=== PATIENT | male | born 1935 | race Caucasian/White ===

== ENCOUNTER 2017-05-03 10:21 | Inpatient (IN) | payer OTHER ==
[~2017-05-03] VITALS: Ht 182.9 cm; Wt 77.1 kg
--- NOTE | ~2017-05-03 | CNG ---
[facility] [place] [address] CYTO-NONGYN REPORT PROCEDURE Name: KUSHAL PICHARDO Room #: 442-P ADM IN M.R.#: [id number] Admission: 05/03/17 Date of : 37 Discharge: Report #: [id number] Path Case #: [id number] CYTOPATHOLOGY REPORT COLLECTION DATE: 05/04/2017 RECEIVED DATE: 05/04/2017 SUBMITTING PHYS: Dr. Natanael Aguayo OTHER PHYS: Dr. Carmencita Francois CLINICAL HISTORY: Pleural effusion; See also [id number] SPECIMEN(S) RECEIVED: A.Pleural fluid * * * * * * * * * * * * FINAL DIAGNOSIS: A. 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 (Please see comment) Comment: Numerous tumor cells morphologically consistent with small cell carcinoma are present. The tumor cells are positive for synaptophysin and Cam 5.2 and negative for chromogranin. The tumor cells in this case are morphologically similar to those seen in this patient's liver biopsy ([id number]) which has also been reviewed. PATHOLOGIST: Alexandrea Dudley M.D. REPORT ELECTRONICALLY SIGNED BY: Alexandrea Dudley M.D. DATE/TIME: 05/08/2017 09:34 * * * * * * * * * * * * GROSS PATHOLOGY: A. Pleural fluid: The specimen is submitted unfixed, labeled "Kushal Pichardo". Received by the Cytology Department is 17 mL of cloudy orange-lacy pink fluid. One ThinPrep slide and a formalin fixed cell block were prepared. (mm 05.04.2017) PROJECT MANAGEMENT INSTRUCTOR(S): CAROLINA Ochoa([facility]) INITIAL CPT CODE(S): A; 20315, 13724, 12815, 53980, 76460 Professional services performed by [facility] at [facility] [address] [facility] , [place] [address] Technical services performed by [facility] at [address] [place] [address], [address], [place] [address]. [facility] [address] [place] [address] CYTO-NONGYN REPORT PROCEDURE Name: KUSHAL PICHARDO Room #: 442-P ADM IN M.R.#: [id number] Admission: 05/03/17 Date of : 37 Discharge: Report #: [id number] Path Case #: [id number] [facility] [address] [place] [address], [address] [place] [address] PHONE: [phone] DIRECTOR: Andrae Nguyen M.D. * * * END OF REPORT * * *
--- NOTE | ~2017-05-03 | S ---
[facility] [place] [address] SURGICAL PATH RPT PROCEDURE Name: KUSHAL PICHARDO Room #: 442-P ADM IN M.R.#: [id number] Admission: 05/03/17 Date of : 37 Discharge: Report #: [id number] Path Case #: [id number] PATHOLOGY REPORT COLLECTION DATE: 05/04/2017 RECEIVED DATE: 05/04/2017 SUBMITTING PHYS: Dr. Carmencita Francois OTHER PHYS: Dr. Natanael Aguayo SPECIMEN(S) RECEIVED: A.Liver mass bx * * * * * * * * * * * * FINAL DIAGNOSIS: Liver, needle core biopsy: - SMALL CELL CARCINOMA. COMMENT: Examination of the "liver" biopsy tissue shows a small blue cell neoplasm with crush artifact as well as abundant necrosis. Immunohistochemical stains are performed based on the provided history. 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 Co-review Dr. Mac Dudley. Findings of this case are discussed with Dr. Jair Sanford at approximately 10:00 am on 05/05/2017. (IUV:pit; 05/05/2017) PATHOLOGIST: Leeanne Martinez M.D. REPORT ELECTRONICALLY SIGNED BY: Leeanne Martinez M.D. DATE/TIME: 05/05/2017 17:27 * * * * * * * * * * * * GROSS PATHOLOGY: Received in formalin labeled "Kushal Pichardo, liver BX," are 9 distinct needle cores of leal soft tissue ranging from 0.1 to 0.9 cm in length, which are submitted entirely in cassette A1. (TSD; 05/04/2017) [facility] [place] [address] SURGICAL PATH RPT PROCEDURE Name: ELIASKUSHAL Wheeler Room #: 442-P ADM IN M.R.#: [id number] Admission: 05/03/17 Date of : 37 Discharge: Report #: [id number] Path Case #: [id number] CLINICAL HISTORY: Liver mass BX, patient has lung masses also INITIAL CPT CODE(S): A; 00192, 33364, 83457, 03765, 87887, 30516 Professional services performed by [facility] [address], [place] [address] Technical services performed by [facility] at [address] [place] [address], [address] [address]. [facility] [address] [place] [address] PHONE: [phone] DIRECTOR: Andrae Nguyen M.D. * * * END OF REPORT * * *
--- NOTE | ~2017-05-03 | HC ---
[facility] [place] [address] CONSULTATION Name: KUSHAL GRIFFIN Summer Room #: 442- ADM IN M.R.#: [id number] Admission: 05/03/17 Attend Phys: Natanael Aguayo MD Discharge: Date of : 37 Report #: [id number] THIS REPORT FOR: //name// CC: Michael Shelton MD [facility] physician/PCP Fausto Arnold PRACTITIONER REQUESTING CONSULT: Alana Wolfe REASON FOR CONSULTATION: Probable lung cancer with left hilar mass, mediastinal adenopathy and liver abnormalities. HISTORY OF PRESENT ILLNESS: The patient is a very pleasant 81-year-old gentleman who grew up down near [place], [place] and lives here by himself [place] a farm. He has no parents, no siblings, no children. He does have 2 cats. 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 He has been moving some bran and noted some left chest discomfort that is persistent. He has also had some swallowing abnormalities. No real fevers, no chills. Does have a cough. Had head cold back near [facility], but that had cleared. Liquids go down okay. No weight changes. No change in bowel habits. No blood in his urine or stool. No dysuria. No arm or leg swelling. He is not aware of any masses. PAST MEDICAL HISTORY: Notable for really no surgery. He also had some type of neck trouble several years ago. FAMILY HISTORY: Reports no cancers. SOCIAL HISTORY: Nonsmoker and nondrinker. MEDICATIONS: None prior to admission to the hospital in [place]. Note that his current medications now currently include azithromycin 500 mg daily, ceftriaxone 1 g q. 24, pantoprazole 40 daily, guaifenesin 1200 b.i.d., ipratropium/albuterol respiratory therapy q. 4, MiraLax 17 g daily, nitroglycerin 0.4 sublingual p.r.n. and Zofran 4 mg IV p.r.n. LABORATORY RESULTS: Here include fairly normal BMP, though note down at [place] he had transaminases in the 60-80 range. White count here is 9, hemoglobin 12.8, MCV 92.9 and platelets 237. Slight increase in neutrophils. The patient did have PA and lateral chest x-ray done here. Rest of his imaging was done at [place]. This shows opacification in inferior half of left thorax secondary to a moderate left pleural effusion, left basilar pneumonia or atelectasis. PHYSICAL EXAMINATION: VITAL SIGNS: Height is 6 feet, which is 182.9 cm; weight is 170 pounds 6 ounces, which is 77.1 kg; blood pressure is 144/74; O2 sat 97%; respirations 20; [facility] [address] [place] [address] CONSULTATION Name: KUSHAL GRIFFIN Summer Room #: 442-P [facility] IN [facility].#: [id number] Admission: 05/03/17 Attend Phys: Natanael Aguayo MD Discharge: Date of : 37 Report #: [id number] pulse 81 and temperature 97.5. MOOD: The patient is alert and pleasant. NEUROLOGIC: His face is symmetrical, moving all extremities. LYMPHATICS: No enlarged lymph nodes in the supraclavicular, cervical, axillary or inguinal region. ABDOMEN: Fairly scaphoid. No masses. EXTREMITIES: Without clubbing or cyanosis. LUNGS: The patient does have decreased breath sounds in the left lower half. Does have some central rhonchi. DISCUSSION: Discussed with patient that I am seeing him because of concern about possible lung cancer. Told that we will follow along and find it out if this is indeed true. Then we can discuss treatment options with him. ASSESSMENT AND PLAN: 1. Left hilar mass with pleural effusion and possible liver metastasis per outside scans. We will await thoracentesis and cytology. If malignancy is found, we will need to complete staging. May consider dedicated CT abdomen and pelvis and bone scan or PET scan. We would also consider MRI head. Chemotherapy would be the option, but we will need to see whether this patient wishes to take it as he has no family support, though I am not sure about friends he has from [place]. 2. Pneumonia. Continue Zithromax and ceftriaxone. 3. Lung difficulties. Continues with inhalation therapy and also guaifenesin. We will follow with you. <ELECTRONICALLY SIGNED> By: Michael Sanofrd MD 05/05/17 0724 0837 1100 Michael Sanford MD /nt
--- NOTE | ~2017-05-03 | P ---
[facility] [place] [address] PROCEDURE REPORT Name: KUSHAL GRIFFIN Room #: 442-P [facility] IN M.R.#: [id number] Admission: 05/03/17 Attend Phys: Natanael Aguayo MD Discharge: Date of : 37 Report #: [id number] THIS REPORT FOR: //name// CC: Michael Francois MD [facility] physician/PCP Fausto Starks MD DATE OF SERVICE: 05/06/2017 PROCEDURE PERFORMED: Upper endoscopy with biopsies. HISTORY OF PRESENT ILLNESS: The patient is an 81-year-old male who was transferred from [facility] with left chest discomfort and persistent cough. CT scan of the abdomen and pelvis as well as chest showed a large left hilar mass, left lower lobe atelectasis, mediastinal lymphadenopathy and a large left pleural effusion. He also has innumerable low density liver lesions consistent with metastatic disease. He has been having intermittent dysphagia, upper GI was performed on 05/05/2017, which showed a 4-cm long mid esophageal stricture, likely secondary to extrinsic compression of the esophagus by subcarinal adenopathy. He also had a thoracentesis on May 04. Plan is for EGD for further evaluation. DESCRIPTION OF PROCEDURE: The risks and benefits of the procedure were explained to the patient, those risks including but not limited to bleeding, perforation, the risk of sedation. He understood these risks and gave informed consent. Sedation was given using propofol per anesthesia. Next using a standard Fujinon upper endoscope, the scope was placed in the patient's mouth and advanced under direct vision through the esophagus, stomach and into the second portion of the duodenum. The larynx was normal in appearance. The proximal esophagus was normal. At approximately 30 cm in the mid esophagus, there was what appears to be extrinsic compression and narrowing of the esophagus. At this point, there were 2 ulcerations as well. No evidence of active bleeding. These ulcerations may be secondary to a pill-induced type of esophagitis, however, biopsies were obtained to rule out the possibility of CMV and herpes. The scope did pass through this area with some mild resistance. The distal esophagus was normal. The GE junction was normal. Overall, the gastric mucosa was normal. The pylorus was normal and patent. The duodenal bulb, first and second portion were all normal. Because of the esophageal ulcers, dilation was not performed and I suspect dilation would not be helpful due to their appearance of extrinsic compression. At this point, the scope was then withdrawn and the procedure terminated. The patient tolerated the procedure well. IMPRESSION: Narrowing of mid esophagus at 30 cm, suspect this is from external [facility] [address] [place] [address] PROCEDURE REPORT Name: KUSHAL GRIFFIN Room #: 442-P [facility] IN M.R.#: [id number] Admission: 05/03/17 Attend Phys: Natanael Aguayo MD Discharge: Date of : 37 Report #: [id number] compression from lymphadenopathy. There were 2 ulcerations noted in this area. I suspect this may be secondary to a pill-induced type of esophagitis. Biopsies, however, were obtained to rule out viral potential etiologies as well. No obvious mass lesions were seen in this area. Again, dilation was not performed as this appears to be extrinsic and there were active ulcerations. RECOMMENDATIONS: 1. Await biopsy results. 2. We will add liquid Carafate and continue PPI therapy. Thank you for allowing me to participate in his care. <ELECTRONICALLY SIGNED> By: Dixon Rogel MD 05/08/17 0814 0858 1111 Dixon Rogel MD /nt
--- NOTE | ~2017-05-03 | S ---
[facility] [place] [address] SURGICAL PATH RPT PROCEDURE Name: KUSHAL GRIFFIN Room #: 442-P DIS IN M.R.#: [id number] Admission: 05/03/17 Date of : 37 Discharge: 05/09/17 Report #: [id number] Path Case #: [id number] PATHOLOGY REPORT COLLECTION DATE: 05/06/2017 RECEIVED DATE: 05/08/2017 SUBMITTING PHYS: Dr. Dixon Rogel OTHER PHYS: Dr. Natanael Aguayo ADDENDUM REPORT (Order Date: 05/10/2017 13:31) ADDENDUM COMMENT: Addendum is issued subsequent to reviewing well-controlled stains. (Block A1) Special stain GMS - No definite fungal elements identified. *CMV immunohistochemical stain - No definite CMV identified. *HSV1 immunohistochemical stain - No definite herpes identified. The originally rendered diagnosis remains unchanged. (IUV; 05/10/2017) *This test was developed and its performance characteristics determined by [facility]. It has not been cleared or approved by the U.S. Food and Drug Administration. The FDA has determined that such clearance or approval is not necessary. This test is used for clinical purposes. It should not be regarded as investigational or for research. This laboratory is certified under the Clinical Laboratory Improvement Amendments of 1988 (CLIA) as qualified to perform high complexity clinical laboratory testing. Professional services performed by [facility] at [facility] [address], [place] [address] Technical services performed by [facility] at [address] [place] [address], [address] [place] [address]. ELECTRONICALLY SIGNED BY: Leeanne Martinez M.D. DATE/TIME:05/10/2017 15:35 SPECIMEN(S) RECEIVED: A.Bx of esophageal lesions at 30 cm * * * * * * * * * * * * FINAL DIAGNOSIS: Squamous mucosa, esophageal erosion 30 cm, endoscopic biopsy: [facility] [address] [place] [address] SURGICAL PATH RPT PROCEDURE Name: KUSHAL GRIFFIN Summer Room #: 442-P [facility] IN .R.#: [id number] Admission: 05/03/17 Date of : 37 Discharge: 05/09/17 Report #: [id number] Path Case #: [id number] - Moderate acute esophagitis. - No active ulceration present in the biopsy tissue. - Negative for parasitic organisms, or of viral inclusions on routine histology (please see comment). - Negative for malignancy. COMMENT: Special stain for fungal elements and immunohistochemical stains for *CMV as well as *HSV 1 are ordered on block A1. The results of these will be reported in an addendum to follow. (IUV:mgr; 05/09/2017) *This test was developed and its performance characteristics determined by [facility]. It has not been cleared or approved by the U.S. Food and Drug Administration. The FDA has determined that such clearance or approval is not necessary. This test is used for clinical purposes. It should not be regarded as investigational or for research. This laboratory is certified under the Clinical Laboratory Improvement Amendments of 1988 (CLIA) as qualified to perform high complexity clinical laboratory testing. PATHOLOGIST: Leeanne Martinez M.D. REPORT ELECTRONICALLY SIGNED BY: Leeanne Martinez M.D. DATE/TIME: 05/09/2017 13:53 * * * * * * * * * * * * GROSS PATHOLOGY: Received in formalin labeled "Kushal Szymasnkin, biopsy of esophageal erosion 30 cm," and additionally labeled on the requisition as, "esophageal lesions," are six segments of leal soft tissue measuring 0.7 x 0.5 x 0.1 cm in aggregate dimensions and ranging from 0.2 to 0.4 cm in maximum dimension. The specimen is submitted entirely in cassette A1. (DAC; 05/08/2017) CLINICAL HISTORY: Esophageal erosions, R/O CMV and herpes INITIAL CPT CODE(S): A; 62060, 41697, 81270, 55194 Professional services performed by [facility] at [facility] [address] [place] [address] Technical services performed by [facility] at [address] [place] [address], [address] [address]. [facility] [address] [place] [address] SURGICAL PATH RPT PROCEDURE Name: KUSHAL GRIFFIN Summer Room #: 442-P DIS IN M.R.#: [id number] Admission: 05/03/17 Date of : 37 Discharge: 05/09/17 Report #: [id number] Path Case #: [id number] [facility] [address] [address] PHONE: [phone] DIRECTOR: Andrae Nguyen M.D. * * * END OF REPORT * * *
[2017-05-03 11:45] VITALS: BP 140/81
[2017-05-03 16:00] VITALS: BP 142/91
[2017-05-03 18:19] LABS: APTT 26.3 Seconds (24.5-32.8); PROTIME 10.7 Seconds (9.3-11.4)
[2017-05-03 19:41] VITALS: BP 118/64
[2017-05-04] VITALS (9 sets, daily range): BP systolic 122–153; BP diastolic 60–92
[2017-05-04 06:46] LABS: BASOPHILS 0.1 % (0.0-2.0); HEMATOCRIT 37.8 % (42.0-52.0); HEMOGLOBIN 12.8 gm/dL (14.0-18.0); MCH 31.5 pg (26.0-34.0); MCHC 33.9 g/dL (28.0-37.0); MCV 92.9 fL (80.0-100.0); MONOCYTES 7.6 % (1.0-8.0); PLATELET COUNT 237 thou/uL (150-400); POLYS 78.3 % (36.0-66.0); RBC 4.07 mil/uL (4.50-6.00); RDW 14.5 % (10.5-14.5)
[2017-05-04 06:57] LABS: CALCIUM 8.6 mg/dL (8.5-10.1); POTASSIUM 4.8 mmol/L (3.5-5.1)
[2017-05-04 11:28] LABS: CLARITY HAZY; COLOR STRAW; SOURCE THORACENTESIS; TOTAL VOLUME 60 mL
[2017-05-04 14:11] LABS: BF NUCLEATED CELLS 242; BF RBC 6020
[2017-05-05 03:36] VITALS: BP 87/55
[2017-05-05 03:52] LABS: ABSOLUTE NEUTROPHILS 7.2 thou/uL (1.4-8.2); BASOPHILS 0.2 % (0.0-2.0); EOSINOPHILS 1.1 % (0.0-3.0); HEMATOCRIT 36.5 % (42.0-52.0); HEMOGLOBIN 12.5 gm/dL (14.0-18.0); LYMPHOCYTES 11.2 % (24.0-44.0); MCH 31.8 pg (26.0-34.0); MCHC 34.2 g/dL (28.0-37.0); MONOCYTES 7.1 % (1.0-8.0); PLATELET COUNT 207 thou/uL (150-400); POLYS 80.4 % (36.0-66.0); RBC 3.92 mil/uL (4.50-6.00); RDW 14.4 % (10.5-14.5); WBC 8.9 thou/uL (4.0-11.0)
[2017-05-05 04:03] LABS: CALCIUM 8.4 mg/dL (8.5-10.1); CREATININE 0.9 mg/dL (0.7-1.3); POTASSIUM 4.1 mmol/L (3.5-5.1)
[2017-05-05 08:00] VITALS: BP 114/74
[2017-05-05 11:11] LABS: BODY FLUID ALBUMIN 1.9 g/dL (()); BODY FLUID AMYLASE 21 U/L (()); BODY FLUID GLUCOSE 92 mg/dL (()); BODY FLUID LDH 289 IU/L (()); BODY FLUID PROTEIN 3.2 g/dL (())
[2017-05-05 15:57] VITALS: BP 113/70
[2017-05-05 19:13] VITALS: BP 103/64
[2017-05-06 03:38] LABS: ABSOLUTE NEUTROPHILS 6.6 thou/uL (1.4-8.2); BASOPHILS 0.1 % (0.0-2.0); EOSINOPHILS 2.5 % (0.0-3.0); HEMATOCRIT 37.2 % (42.0-52.0); HEMOGLOBIN 12.7 gm/dL (14.0-18.0); LYMPHOCYTES 12.7 % (24.0-44.0); MCH 31.7 pg (26.0-34.0); MCV 93.2 fL (80.0-100.0); MONOCYTES 8.4 % (1.0-8.0); PLATELET COUNT 222 thou/uL (150-400); POLYS 76.3 % (36.0-66.0); RBC 3.99 mil/uL (4.50-6.00); RDW 14.3 % (10.5-14.5); WBC 8.6 thou/uL (4.0-11.0)
[2017-05-06 03:46] LABS: CALCIUM 8.3 mg/dL (8.5-10.1); POTASSIUM 4.2 mmol/L (3.5-5.1)
[2017-05-06 04:54] VITALS: BP 112/60
[2017-05-06 06:45] LABS: LARGE PLATELETS FEW
[2017-05-06 07:35] VITALS: BP 117/68
[2017-05-06 11:11] LABS: SOURCE THORACENTESIS
[2017-05-06 12:47] LABS: BF NEUTROPHILS 1
[2017-05-06 16:11] VITALS: BP 120/65
[2017-05-06 19:04] VITALS: BP 122/72
[2017-05-07 04:32] VITALS: BP 106/57
[2017-05-07 04:51] LABS: ABSOLUTE NEUTROPHILS 5.5 thou/uL (1.4-8.2); BASOPHILS 0.2 % (0.0-2.0); EOSINOPHILS 2.8 % (0.0-3.0); HEMATOCRIT 35.9 % (42.0-52.0); LYMPHOCYTES 14.3 % (24.0-44.0); MCH 31.2 pg (26.0-34.0); MCHC 33.4 g/dL (28.0-37.0); MCV 93.2 fL (80.0-100.0); MONOCYTES 9.2 % (1.0-8.0); PLATELET COUNT 213 thou/uL (150-400); POLYS 73.5 % (36.0-66.0); RBC 3.85 mil/uL (4.50-6.00); RDW 14.7 % (10.5-14.5); WBC 7.5 thou/uL (4.0-11.0)
[2017-05-07 05:07] LABS: CALCIUM 8.3 mg/dL (8.5-10.1); POTASSIUM 4.3 mmol/L (3.5-5.1)
[2017-05-07 08:25] VITALS: BP 119/63
[2017-05-07 16:12] VITALS: BP 105/63
[2017-05-07 19:43] VITALS: BP 100/52
[2017-05-08 04:04] VITALS: BP 110/72; BP 94/62
[2017-05-08 04:39] LABS: ABSOLUTE NEUTROPHILS 5.2 thou/uL (1.4-8.2); BASOPHILS 0.2 % (0.0-2.0); EOSINOPHILS 2.3 % (0.0-3.0); HEMATOCRIT 35.9 % (42.0-52.0); LYMPHOCYTES 14.7 % (24.0-44.0); MCH 31.1 pg (26.0-34.0); MCHC 33.4 g/dL (28.0-37.0); MONOCYTES 10.8 % (1.0-8.0); PLATELET COUNT 222 thou/uL (150-400); RBC 3.86 mil/uL (4.50-6.00); RDW 14.3 % (10.5-14.5); WBC 7.2 thou/uL (4.0-11.0)
[2017-05-08 04:51] LABS: CALCIUM 8.3 mg/dL (8.5-10.1); POTASSIUM 4.5 mmol/L (3.5-5.1)
[2017-05-08 07:25] VITALS: BP 104/66
[2017-05-08 15:40] VITALS: BP 118/78
[2017-05-08 16:16] VITALS: BP 104/66
[2017-05-08 22:23] VITALS: BP 104/49; BP 122/70
[2017-05-09 04:36] VITALS: BP 121/66
[2017-05-09 05:44] LABS: ABSOLUTE NEUTROPHILS 5.3 thou/uL (1.4-8.2); BASOPHILS 0.3 % (0.0-2.0); EOSINOPHILS 2.3 % (0.0-3.0); HEMATOCRIT 37.7 % (42.0-52.0); HEMOGLOBIN 12.6 gm/dL (14.0-18.0); LYMPHOCYTES 14.2 % (24.0-44.0); MCH 30.9 pg (26.0-34.0); MCHC 33.4 g/dL (28.0-37.0); MCV 92.7 fL (80.0-100.0); MONOCYTES 9.5 % (1.0-8.0); PLATELET COUNT 217 thou/uL (150-400); POLYS 73.7 % (36.0-66.0); RBC 4.07 mil/uL (4.50-6.00); RDW 14.5 % (10.5-14.5); WBC 7.2 thou/uL (4.0-11.0)
[2017-05-09 05:58] LABS: CALCIUM 8.7 mg/dL (8.5-10.1); CREATININE 0.8 mg/dL (0.7-1.3); POTASSIUM 4.1 mmol/L (3.5-5.1)
[2017-05-09 08:56] VITALS: BP 121/75
[2017-05-09 10:57] VITALS: BP 104/66
[2017-05-10 10:14] LABS: BF MACROPHAGE 93
== END 2017-05-09 14:45 | disposition home or self-care (01) | DRG 180 ==
LOC: 4S 10:21 → ENTRNSPT 05-09 14:21 → EDTRNSPTSTS 05-09 14:24 → 4S 05-09 14:45
PROVIDERS: Family Medicine; Internal Medicine Pulmonary Disease; Nurse Practitioner
PROC: 0W9B3ZX Drainage of Left Pleural Cavity, Percutaneous Approach, Diagnostic (ICD-10-PCS; principal; 2017-05-04)
PROC: 0FB23ZX Excision of Left Lobe Liver, Percutaneous Approach, Diagnostic (ICD-10-PCS; principal; 2017-05-04)
PROC: 0DB58ZX Excision of Esophagus, Via Natural or Artificial Opening Endoscopic, Diagnostic (ICD-10-PCS; 2017-05-06)
DX: C34.92 Malignant neoplasm of unspecified part of left bronchus or lung (principal); J18.9 Pneumonia, unspecified organism; E43 Unspecified severe protein-calorie malnutrition; K22.10 Ulcer of esophagus without bleeding; C78.7 Secondary malignant neoplasm of liver and intrahepatic bile duct; R59.1 Generalized enlarged lymph nodes; K22.2 Esophageal obstruction; Z68.23 Body mass index [BMI] 23.0-23.9, adult; Z79.899 Other long term (current) drug therapy
CPT/HCPCS: 10102; 62110; 62900; 70005

== ENCOUNTER 2017-05-18 02:03 | Inpatient (IN) | payer OTHER ==
[2017-05-18] VITALS (8 sets, daily range): BP systolic 114–156; BP diastolic 60–78
[~2017-05-18] VITALS: Ht 182.9 cm; Wt 70.8 kg
--- NOTE | ~2017-05-18 | HC ---
[facility] [place] [address] CONSULTATION Name: KUSHAL GRIFFIN Summer Room #: 412-P ADM IN M.R.#: [id number] Admission: 05/18/17 Attend Phys: Jonathan Lovell MD Discharge: Date of : 37 Report #: [id number] THIS REPORT FOR: //name// CC: Michael Francois MD [facility] Yossi Smith MD REASON FOR CONSULTATION: Extensive stage small cell lung cancer. HISTORY OF PRESENT ILLNESS: I had first met the patient during his last admit when he was admitted for a left hilar mass and biopsy came back showing small cell carcinoma. At that time, plans have been made, since the patient is without children or much family support, to see the oncologist in [place] at [facility]. This was accomplished last week, and the patient was planning to begin chemotherapy today on Monday, but unfortunately was admitted last Monday for shortness of breath and placement of PleurX catheter and also for pain management. I talked with the patient today. He is willing to begin chemotherapy. I think this is somewhat urgent. I am afraid if we will wait till either late this week or next week, the patient will progress so far that he would not be able to benefit. I still have some concerns about his ability to benefit at this point. The patient denies recent headache, fevers or chills. Does still have a cough. Does have a dry throat. Does have a little bit of constipation, but he has not eaten very much. He has not had any bleeding. No new arm or leg swelling. Has had the shortness of breath, maybe slightly better after the PleurX catheter. He has also recently had a post-obstructive pneumonia. Other than that, his past medical history is pretty benign. FAMILY HISTORY: No cancer. SOCIAL HISTORY: He is a nonsmoker and nondrinker. 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 Has friend support down there. Note that the patient did have a PleurX catheter placed on the left side on 05/18/2017. MEDICATIONS: At this time in the hospital currently include IV fluids, fentanyl p.r.n., Lovenox 40 mg daily, lidocaine to affected areas around the catheter as needed, meclizine 12.5 t.i.d., guaifenesin p.r.n., benzocaine/menthol lozenges q. 2 p.r.n., oxycodone 10 mg q. 4 p.r.n., pantoprazole 40 b.i.d., sucralfate 1 g before meals and at bedtime, ipratropium and albuterol 3 mL q. 6 respiratory therapy and Zofran p.r.n. LABORATORY RESULTS: Show a BUN of 13 and creatinine of 1. Liver function with [address] [address] CONSULTATION Name: KUSHAL GRIFFIN Room #: [facility].#: [id number] Admission: 05/18/17 Attend Phys: Jonathan Lovell MD Discharge: Date of : 37 Report #: [id number] AST 139. Total bili 1.1. Alk phos 700 and ALT 149. Albumin 2.5. White blood count 11.4, hemoglobin 11.6 and platelets of 243. Differential: Slight left shift, but not acute. IMAGING: At this time showed a CAT of abdomen and pelvis showing the liver metastasis. ASSESSMENT AND PLAN: 1. Extensive stage small cell lung cancer. We will make plans for emergently beginning carboplatin, AUC of 5, times 1 dose and GENER[employer]ER-16 or etoposide 80 mg/m2 daily for 3 days with antiemetics as needed. We will also begin allopurinol in case the patient might have tumor lysis. I have already talked with the pharmacist twice now, also the floor nurse and left the message with the infusion center. We will also try to contact [facility], so they are aware that we will be administering the chemo up here. 2. Pain. We will try to increase patient's available pain meds. 3. Shortness of breath and pleural effusion. He has PleurX catheter and hopefully this will dry up with use of chemotherapy. We will follow closely with you. <ELECTRONICALLY SIGNED> By: Michael Sanford MD 05/24/17 1303 0757 0926 Michael Sanford MD /nt
--- NOTE | ~2017-05-18 | HC ---
[facility] [place] [address] CONSULTATION Name: KUSHAL GRIFFIN Room #: 412-P [facility] .R.#: [id number] Admission: 05/18/17 Attend Phys: Jonathan Lovell MD Discharge: 05/27/17 Date of : 37 Report #: [id number] THIS REPORT FOR: //name// CC: Yossi Velasco MD DATE OF SERVICE: 05/24/2017 REQUESTING PHYSICIAN: Dr. Velasco. 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 HISTORY OF PRESENT ILLNESS: The patient is an 81-year-old male who presented to [facility] on 05/18. The patient unfortunately had a large pleural effusion and required PleurX drain placement and has had subsequently significant drainage from this drain. He initially had 3 liters. He additionally had significant pain, which he reports right now is abdominal type and required pain management. The patient had previously been seen by Dr. Sanford and was going to follow up in [facility] near [place], [place] for followup oncology; however, had never made it to this followup. The patient subsequently has had worsening of his overall condition with metastasis to the liver based on recent scans. The patient reports that at this time, his worst symptom is his abdominal pain, which appears to be radiating from the right to the left just below his ribs. He denies current nausea. Does have a scopolamine patch as well as multiple other medications including Zofran, Compazine and Phenergan in place for p.r.n. use. Additionally, the patient has reports of some minimal constipation as well. PAST MEDICAL HISTORY: Prior to this diagnosis, the patient did not have a significant medical history. He has known dysphagia now and hypoxic respiratory failure. Cervical neck fracture previously. FAMILY HISTORY: Noncontributory. SOCIAL HISTORY: The patient was never a smoker per his previous report. He is not able to answer at this current point in time. MEDICATIONS: Previously on no significant home medication. Currently on a 12 mcg fentanyl patch, oxycodone IR 10 mg p.r.n. and also Compazine, Phenergan and scopolamine patch as previously discussed. ALLERGIES: NO KNOWN DRUG ALLERGIES. SOCIAL HISTORY: His durable power of menu planner is apparently a cousin. He [facility] [address] [place] [address] CONSULTATION Name: KUSHAL GRIFFIN Summer Room #: 412-P [facility] IN ..#: [id number] Admission: 05/18/17 Attend Phys: Jonathan Lovell MD Discharge: 05/27/17 Date of : 37 Report #: [id number] states his name is Mac. He states that he would like to make his own medical decisions at this time. He appears to currently have capacity for those decisions. REVIEW OF SYSTEMS: GENERAL: He has had recent weight loss and significant decrease in appetite. RESPIRATORY: Does report dyspnea, but not significant at this time and is not bothersome to him. CARDIOVASCULAR: Denies chest pain. ABDOMEN: Does report nausea, but it has been well controlled with his current regimen. Some constipation as well. EXTREMITIES: Reports diffuse weakness. PHYSICAL EXAMINATION: VITAL SIGNS: These include vitals 36.8 temperature, pulse 102, respirations 20, blood pressure 151/88 and 91% on nasal cannula. GENERAL: The patient appears to be alert and oriented x 2. HEENT: Extraocular muscles appear to be intact. No scleral icterus. He does open his eyes to command. He is able to respond to questions today. CARDIOVASCULAR: Regular rate and rhythm without murmur. LUNGS: He does have diminished lung sounds, but no apparent upper lobe rales. ABDOMEN: He has diffuse tenderness to palpation especially prominent upper quadrant bilaterally. LABORATORY DATA: Include hemoglobin 11.7, white blood cell count 15.9. Creatinine 1.0 and sodium 133. ASSESSMENT AND PLAN: 1. Metastatic small cell lung cancer. Management per Oncology at this time. I did discuss extensively today. I spent approximately 45 minutes in discussion with the patient with regards to advance care directives and this was of a voluntary nature including the possibility of hospice outpatient. The patient will consider this. He had initially made statements such as "I am ready to give it up per report," although he is very difficult to obtain information from at this time, appears to have acute delirium at this current point, unknown how much information he is exactly retaining although he was able to express to me the consequences of not seeking treatment. The patient is understanding that this is not likely curative treatment that he is receiving at this point in time, but more a palliative type treatment. The patient is amenable to possibility of hospice in the future, but he will consider further whether he wants it at this time. I did discuss code status as well and the patient again is to consider this. Unfortunately, I will not be present in the next 4 days as I will be out of town, but I am glad to follow up on Monday with regards to this. 2. Delirium. I do feel like this is affecting his current decision making status. I had scopolamine removed, although I do not want to induce nausea with [facility] [address] [place] [address] CONSULTATION Name: KUSHAL GRIFFIN Room #: 412-P [facility] [place] [facility]#: [id number] Admission: 05/18/17 Attend Phys: Jonathan Lovell MD Discharge: 05/27/17 Date of : 37 Report #: [id number] the patient, I do think that it may be contributing to worsening of his altered mental status and this may allow for more clear mentation for patient for us to obtain his definitive wishes. Again, I will continue to follow up, but it will have to be on Monday. I will not be able to see the patient until such time. Please feel free to contact me at any time. I will be happy to discuss decision making with the patient in the meantime. Thank you very much for the consultation. <ELECTRONICALLY SIGNED> By: Tiago Prather DO 07/07/17 [id number] Tiago Prather DO /nt
[2017-05-18 02:47] LABS: ABSOLUTE NEUTROPHILS 6.4 thou/uL (1.4-8.2); BASOPHILS 0.7 % (0.0-2.0); EOSINOPHILS 0.9 % (0.0-3.0); HEMATOCRIT 37.7 % (42.0-52.0); HEMOGLOBIN 12.7 gm/dL (14.0-18.0); LYMPHOCYTES 11.3 % (24.0-44.0); MCH 31.3 pg (26.0-34.0); MCHC 33.7 g/dL (28.0-37.0); MCV 92.9 fL (80.0-100.0); MONOCYTES 7.7 % (1.0-8.0); PLATELET COUNT 274 thou/uL (150-400); POLYS 79.4 % (36.0-66.0); RBC 4.06 mil/uL (4.50-6.00); RDW 14.7 % (10.5-14.5)
[2017-05-18 02:53] LABS: CALCIUM 9.2 mg/dL (8.5-10.1); POTASSIUM 4.1 mmol/L (3.5-5.1)
[2017-05-18 02:58] LABS: ALBUMIN 2.5 g/dL (3.4-5.0); TOTAL BILIRUBIN 1.1 mg/dL (<0.1-1.0); TOTAL PROTEIN 6.6 g/dL (6.4-8.2)
[2017-05-19] VITALS: BP 118/72
[2017-05-19 04:00] VITALS: BP 130/72
[2017-05-19 08:15] VITALS: BP 109/72
[2017-05-19 10:42] LABS: ABSOLUTE NEUTROPHILS 8.4 thou/uL (1.4-8.2); BASOPHILS 0.3 % (0.0-2.0); EOSINOPHILS 0.3 % (0.0-3.0); HEMATOCRIT 39.1 % (42.0-52.0); LYMPHOCYTES 5.7 % (24.0-44.0); MCHC 33.1 g/dL (28.0-37.0); MCV 93.6 fL (80.0-100.0); PLATELET COUNT 253 thou/uL (150-400); POLYS 85.7 % (36.0-66.0); RBC 4.18 mil/uL (4.50-6.00); RDW 15.4 % (10.5-14.5); WBC 9.9 thou/uL (4.0-11.0)
[2017-05-19 10:50] LABS: CALCIUM 8.9 mg/dL (8.5-10.1); POTASSIUM 4.4 mmol/L (3.5-5.1)
[2017-05-19 16:36] VITALS: BP 121/74
[2017-05-19 19:00] VITALS: BP 117/62
[2017-05-20] VITALS: BP 101/71
[2017-05-20 04:00] VITALS: BP 117/73
[2017-05-20 08:00] VITALS: BP 113/72
[2017-05-20 17:16] VITALS: BP 122/49; BP 140/49
[2017-05-20 20:00] VITALS: BP 126/49
[2017-05-21 04:17] VITALS: BP 109/68
[2017-05-21 16:38] VITALS: BP 106/57
[2017-05-21 20:08] VITALS: BP 101/69
[2017-05-22 03:25] VITALS: BP 125/68
[2017-05-22 06:21] LABS: ABSOLUTE NEUTROPHILS 9.5 thou/uL (1.4-8.2); BASOPHILS 0.3 % (0.0-2.0); EOSINOPHILS 0.7 % (0.0-3.0); HEMATOCRIT 34.7 % (42.0-52.0); HEMOGLOBIN 11.6 gm/dL (14.0-18.0); LYMPHOCYTES 5.3 % (24.0-44.0); MCH 31.2 pg (26.0-34.0); MCHC 33.4 g/dL (28.0-37.0); MCV 93.3 fL (80.0-100.0); MONOCYTES 11.1 % (1.0-8.0); PLATELET COUNT 243 thou/uL (150-400); POLYS 82.6 % (36.0-66.0); RBC 3.72 mil/uL (4.50-6.00); RDW 15.1 % (10.5-14.5); WBC 11.4 thou/uL (4.0-11.0)
[2017-05-22 06:29] LABS: CALCIUM 8.1 mg/dL (8.5-10.1); MAGNESIUM 1.8 mg/dL (1.8-2.4); POTASSIUM 4.6 mmol/L (3.5-5.1)
[2017-05-22 09:13] VITALS: BP 121/61
[2017-05-22 18:10] VITALS: BP 96/55
[2017-05-22 21:31] VITALS: BP 112/79
[2017-05-23 04:12] LABS: ABSOLUTE NEUTROPHILS 10.5 thou/uL (1.4-8.2); BASOPHILS 0.2 % (0.0-2.0); HEMATOCRIT 35.1 % (42.0-52.0); HEMOGLOBIN 11.7 gm/dL (14.0-18.0); LYMPHOCYTES 1.9 % (24.0-44.0); MCH 30.8 pg (26.0-34.0); MCHC 33.3 g/dL (28.0-37.0); MCV 92.6 fL (80.0-100.0); MONOCYTES 5.3 % (1.0-8.0); PLATELET COUNT 267 thou/uL (150-400); POLYS 92.6 % (36.0-66.0); RBC 3.79 mil/uL (4.50-6.00); RDW 15.1 % (10.5-14.5); WBC 11.4 thou/uL (4.0-11.0)
[2017-05-23 04:21] LABS: ALBUMIN 1.6 g/dL (3.4-5.0); CALCIUM 8.1 mg/dL (8.5-10.1); MAGNESIUM 1.9 mg/dL (1.8-2.4); POTASSIUM 4.2 mmol/L (3.5-5.1); TOTAL PROTEIN 5.4 g/dL (6.4-8.2)
[2017-05-23 05:25] VITALS: BP 115/73
[2017-05-23 16:26] VITALS: BP 112/67
[2017-05-23 20:00] VITALS: BP 137/79
[2017-05-24 02:41] VITALS: BP 125/74
[2017-05-24 05:05] LABS: HEMATOCRIT 35.3 % (42.0-52.0); HEMOGLOBIN 11.7 gm/dL (14.0-18.0); MCH 30.8 pg (26.0-34.0); MCHC 33.2 g/dL (28.0-37.0); MCV 92.9 fL (80.0-100.0); RBC 3.8 mil/uL (4.50-6.00); RDW 14.8 % (10.5-14.5); WBC 15.9 thou/uL (4.0-11.0)
[2017-05-24 05:08] LABS: CALCIUM 8.1 mg/dL (8.5-10.1); POTASSIUM 4.6 mmol/L (3.5-5.1)
[2017-05-24 08:33] VITALS: BP 120/70
[2017-05-24 11:41] VITALS: BP 151/88
[2017-05-24 15:55] VITALS: BP 129/66
[2017-05-24 20:00] VITALS: BP 115/58
[2017-05-25 04:21] VITALS: BP 118/76
[2017-05-25 05:50] LABS: ABSOLUTE NEUTROPHILS 15.4 thou/uL (1.4-8.2); HEMATOCRIT 32.2 % (42.0-52.0); HEMOGLOBIN 10.7 gm/dL (14.0-18.0); LYMPHOCYTES 1.3 % (24.0-44.0); MCH 30.8 pg (26.0-34.0); MCHC 33.3 g/dL (28.0-37.0); MCV 92.4 fL (80.0-100.0); MONOCYTES 0.8 % (1.0-8.0); PLATELET COUNT 264 thou/uL (150-400); POLYS 97.9 % (36.0-66.0); RBC 3.49 mil/uL (4.50-6.00); WBC 15.7 thou/uL (4.0-11.0)
[2017-05-25 06:07] LABS: ALBUMIN 1.4 g/dL (3.4-5.0); CALCIUM 7.8 mg/dL (8.5-10.1); MAGNESIUM 2.2 mg/dL (1.8-2.4); POTASSIUM 4.6 mmol/L (3.5-5.1); TOTAL BILIRUBIN 0.7 mg/dL (<0.1-1.0); TOTAL PROTEIN 4.7 g/dL (6.4-8.2)
[2017-05-25 08:57] VITALS: BP 119/60
[2017-05-25 20:00] VITALS: BP 108/64
[2017-05-26] VITALS: BP 126/57
[2017-05-26 04:55] VITALS: BP 104/63
[2017-05-26 08:53] VITALS: BP 124/75
[2017-05-26 17:25] VITALS: BP 116/62
[2017-05-26 19:47] VITALS: BP 111/65
[2017-05-27 04:25] VITALS: BP 99/60
[2017-05-27 08:41] VITALS: BP 1118/84
[2017-05-27] MEDS ORDERED: PROTONIX40 M1 PO (09:30)
[2017-05-27] MEDS ORDERED: ALLOPURINOL 30300 M1 PO (09:30)
[2017-05-27] MEDS ORDERED: CARAFATE 1 GM TA1 G1 PO (09:30)
[2017-05-27 09:57] VITALS: BP 1118/84
[2017-05-27 10:59] VITALS: BP 111/61
== END 2017-05-27 13:08 | disposition hospice, home (50) | DRG 180 ==
LOC: ER 02:03 → EROBS 04:02 → 4N 04:02
PROVIDERS: Emergency Medicine; Hospitalist; Internal Medicine
PROC: 0JH63XZ Insertion of Tunneled Vascular Access Device into Chest Subcutaneous Tissue and Fascia, Percutaneous Approach (ICD-10-PCS; principal; 2017-05-18)
DX: C34.90 Malignant neoplasm of unspecified part of unspecified bronchus or lung (principal); E43 Unspecified severe protein-calorie malnutrition; G93.40 Encephalopathy, unspecified; C78.7 Secondary malignant neoplasm of liver and intrahepatic bile duct; J90 Pleural effusion, not elsewhere classified; E87.1 Hypo-osmolality and hyponatremia; R41.0 Disorientation, unspecified; R13.10 Dysphagia, unspecified; Z66 Do not resuscitate; Z85.05 Personal history of malignant neoplasm of liver; Z85.118 Personal history of other malignant neoplasm of bronchus and lung; Z79.899 Other long term (current) drug therapy; R74.0 Nonspecific elevation of levels of transaminase and lactic acid dehydrogenase [LDH]; Z68.21 Body mass index [BMI] 21.0-21.9, adult
CPT/HCPCS: 10790